=== PATIENT | male | born 1965 | race Caucasian/White ===

== ENCOUNTER → 2016-04-18 | Outpatient (CLI) | payer BC ==
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
== END | disposition home or self-care (01) ==
LOC: SLEEP 16:58
PROVIDERS: ATTEND Internal Medicine Critical Care Medicine
DX: G47.33 Obstructive sleep apnea (adult) (pediatric) (principal); E66.9 Obesity, unspecified; Z99.89 Dependence on other enabling machines and devices; Z68.31 Body mass index [BMI] 31.0-31.9, adult; Z79.899 Other long term (current) drug therapy

== ENCOUNTER → 2017-06-04 | Outpatient (CLI) | payer BC ==
--- NOTE | 2017-06-04 17:08 | US ---
EXAMINATION TYPE: US scrotum with doppler. Grayscale and color Doppler Duplex imaging performed of t he scrotum. DATE OF EXAM: 06/04/2017 COMPARISON: NONE CLINICAL HISTORY: N50.89 Testicular mass; Palpable note left scrotal sac x 3 weeks EXAM MEASUREMENTS: TESTICLES: Right Testicle: 5.5 x 3.0 x 2.7 cm Left Testicle: 5.6 x 2.6 x 3.0 cm EPIDIDYMIS HEAD: Right Epididymis: 0.9 x 0.9 x 1.1 cm Left Epididymis: 1.2 x 1.5 x 0.8 cm Doppler was performed to assess for testicular vascularity; good bilateral color flow and waveforms a re seen. There is no evidence of testicular torsion. Presence of hydroceles: small fluid area seen superior to left testicle = 1.9 x 2.9 x 1.0cm Presence of varicoceles: no At patient's complaint of left palpable a cyst is noted at superior epididymal level with adjacent ap pendix (0.3x 0.2 x 0.2cm) imaged. Size of head cyst = 0.5 x 0.4 x 0.4cm. Inferior left epididymal cys t is also seen = 0.8 x 09 x 0.7cm. IMPRESSION: Tiny epididymal cysts correspond to area of palpable abnormality left scrotum. No suspici ous focal intratesticular mass is identified.
== END | disposition home or self-care (01) ==
LOC: RADUSWWP 16:02
PROVIDERS: ATTEND Family Medicine
DX: N50.3 Cyst of epididymis (principal)
CPT/HCPCS: 76870; 93975